=== PATIENT | female | born 1950 | race Caucasian/White ===

== ENCOUNTER 2021-04-03 09:09 | Day surgery (SDC) | payer OTHER ==
[~2021-04-03] VITALS: Ht 154.9 cm; Wt 58.2 kg
[~2021-04-03 09:09] MED LIST: ASPI-1450 PO; ASPIRIN 81 MG CHEWABLE TABLET PO ONE; ATOR10TA84 PO; CHOL-35 PO; DIAZEPAM 5 MG TABLET PO ONE; DOCU-270 PO; DRON400T7 PO; DiphenhydrAMINE HCL 50 MG CAPSULE PO ONE; FAMO20 PO; FLEC50 PO; GABA-1216 PO; MECL25TA39 PO; METO-558 PO; METO25 PO; METO25XL PO; SIMV-259 PO; SODIUM CHLORIDE 0.9% 1,000 ML IV ONE; SUCR1TAB PO
[2021-04-03] MEDS ORDERED: SODIUM CHLORIDE 0.9% 1,000 ML ONE (09:44)
[2021-04-03] MEDS ORDERED: DIAZEPAM 5 MG TABLET ONE (10:19)
[2021-04-03] MEDS ORDERED: ASPIRIN 81 MG CHEWABLE TABLET ONE (10:19)
[2021-04-03] MEDS ORDERED: DiphenhydrAMINE HCL 50 MG CAPSULE ONE (10:19)
[2021-04-03] MEDS ORDERED: IOHEXOL 300 MG/ML 100 ML VIAL ONE (12:30)
[2021-04-03] MEDS ORDERED: SODIUM BICARBONATE 50 MEQ/50 ML VIAL ONE (12:30)
[2021-04-03] MEDS ORDERED: IOHEXOL 300 MG/ML 150 ML VIAL ONE (12:30)
[2021-04-03] MEDS ORDERED: LIDOCAINE/PF 1% 30 ML VIAL ONE (12:30)
[2021-04-03] MEDS ORDERED: HEPARIN SODIUM 1000 UNITS/NS 0 ML ONE (12:30)
[2021-04-03] MEDS ORDERED: IOHEXOL 300 MG/ML 50 ML VIAL ONE (12:30)
[2021-04-03 13:01] VITALS: BP 120/63
[2021-04-03] MEDS ORDERED: MIDAZOLAM HCL 2 MG/2 ML VIAL ONE (13:18)
[2021-04-03] MEDS ORDERED: FentaNYL CITRATE PF 100 MCG/2 ML VIAL ONE (13:18)
[2021-04-03] MEDS ORDERED: LIDOCAINE 1% 30 ML/SOD BICARB 8.4% 4 ML SQ ONE (13:30)
[2021-04-03] MEDS ORDERED: IOHEXOL 300 MG/ML 150 ML VIAL IARTER ONE (13:30)
[2021-04-03] MEDS ORDERED: HEPARIN SODIUM 1000 UNITS/NS 1,000 ML IARTER ONE (13:30)
[2021-04-03] MEDS ORDERED: FentaNYL CITRATE PF 100 MCG/2 ML VIAL IVP ONE (13:45)
[2021-04-03] MEDS ORDERED: MIDAZOLAM HCL 2 MG/2 ML VIAL IVP ONE (13:45)
[2021-04-03 13:55] VITALS: BP 115/56
== END 2021-04-03 19:25 | disposition home or self-care (01) ==
LOC: CATHLAB 09:09
PROVIDERS: ATTEND Internal Medicine Interventional Cardiology
DX: I42.8 Other cardiomyopathies (principal); E78.5 Hyperlipidemia, unspecified; Z88.8 Allergy status to other drugs, medicaments and biological substances; Z79.899 Other long term (current) drug therapy
CPT/HCPCS: 93005; 93458; 99152; C1760; J2250; J3010; J3490 ×2; J7030; Q9967 ×3; J1644